=== PATIENT | female | born 1990 | race African-American/Black ===

== ENCOUNTER 2022-05-11 19:08 | Emergency (ER) | payer SELFPAY ==
--- NOTE | ~2022-05-11 | CT_ITS ---
EXAMINATION: CT soft tissue neck w con DATE: 05/11/2022 21:20 INDICATION: Throat pain. TECHNIQUE: Computed tomography (CT) of the neck was performed with 75 mL Omnipaque-350 intravenous co ntrast. The dose-length product was 530.00 mGy-cm. COMPARISON: None FINDINGS: The thyroid gland is unremarkable. The submandibular and parotid glands are symmetric. Bilateral upper cervical chain lymphadenopathy. Enlarged bilateral palatine in tonsils, adenoids, and uvula. No tonsillar abscess. There are no masses identified. Soft tissue density in the upper mediastinum, likely representing residual thymic tissue. The airway is unremarkable. Mild parapharyngeal edema . Preglottic fat planes are preserved. Normal-appearing neck vessels. The orbits are unremarkable. Mucosal thickening in the right frontal ethmoid and bilateral maxillary sinuses with an air-fluid level in the right maxillary sinus. The remaining aerated spaces are clear. Visualized lung parenchy ma is clear. No significant degenerative changes. IMPRESSION: 1. Tonsillar and adenoid enlargement with pharyngeal mucosal edema. 2. Upper anterior cervical chain lymphadenopathy. 3. CT findings suggestive of acute right maxillary sinusitis. Reviewed, dictated and finalized at location K. CARRIER
[2022-05-11 19:28] VITALS: BP 138/81; PULSE 111; RESP 14; TEMP 36.2; O2SAT 100
--- NOTE | 2022-05-11 19:50 | ED.GENADULT ---
HPI - General Adult General Chief complaint: Upper Respiratory Infection Stated complaint: throat pain Time Seen by Provider: 05/11/22 19:36 Source: RN notes reviewed History of Present Illness HPI narrative: Patient presents emergency department from home for sore throat. Patient states symptoms began 3 days ago. States that she has been having increasingly worsening sore throat to the point where it is difficult for her to swallow states that the pain is worse on the right with pain rating to the right ear. She states that she has had no measured fevers but has been feeling hot and cold she does note mild rhinorrhea as well. She denies any coughing or shortness of breath denies any chest pain abdominal pain nausea vomiting or any other symptoms. States did not take anything at home for the symptoms Related Data Allergies Allergy/AdvReac Type Severity Reaction Status Date / Time No Known Allergies Allergy Verified 05/11/22 20:43 Review of Systems Review of Systems: Gen.: Denies fevers or chills ENT: See HPI Respiratory: Denies shortness of breath or cough CV: Denies chest pain or palpitations GI: Denies abdominal pain nausea, emesis Musculoskeletal denies neck or joint pain Neuro: Denies headache Skin: Denies rash Except as documented, all other systems reviewed and negative PMFSH Past Medical History Medical History (Updated 05/11/22 @ 23:30 by Linus Dow DO) Patient denies significant medical history Social History Social History (Updated 05/11/22 @ 19:51 by Linus Dow DO) Smoking status: Never smoker Exam Narrative: APPEARANCE: No acute distress, nontoxic, resting in bed EYES: EOMI, PERRL HEENT: Normocephalic, atraumatic, TMs clear bilaterally, nares patent oral mucosa moist erythema of the posterior pharynx with enlargement of the right tonsil with protrusion and uvula shifted to the left with mild swelling of the uvula left tonsil normal in appearance no exudate airway patent tolerating own secretions mildly muffled voice RESPIRATORY: No respiratory distress Clear to auscultation bilaterally with no rhonchi wheezing or rales. CARDIOVASCULAR: Regular rate and rhythm without murmurs rubs or gallops. ABDOMINAL: Soft, nontender, nondistended, no rebound or guarding MUSCULOSKELETAl: Moves all extremities. No clubbing, cyanosis or edema. NEURO: Awake and alert. Following commands, speech normal, no focal deficits SKIN:: Warm, dry. No rashes lesions or abrasions PSYCHIATRIC: Normal affect/mood, Course Course Emergency Course: Discussed with patient results of workup and diagnosis. Discussed need for follow-up with primary care, proper use of medication, and reasons to return to the emergency department. Patient understands and agrees to current treatment plan Vital Signs Vital signs: Vital Signs Temperature 97.2 F L 05/11/22 19:28 Pulse Rate 111 H 05/11/22 19:28 Respiratory Rate 14 05/11/22 19:28 Blood Pressure 138/81 05/11/22 19:28 Pulse Oximetry 100 05/11/22 19:28 Oxygen Delivery Room Air 05/11/22 19:28 Temperature 97.2 F L 05/11/22 19:28 Pulse Rate 111 H 05/11/22 19:28 Respiratory Rate 14 05/11/22 19:28 Blood Pressure 138/81 05/11/22 19:28 Pulse Oximetry 100 05/11/22 19:28 Oxygen Delivery Room Air 05/11/22 19:28 Medical Decision Making [facility] Narrative Medical decision making narrative: Patient presents for sore throat for 3 days does have some tonsillar protrusion and swelling fluids Decadron antibiotics were given patient is strep positive CT scan was performed that does not show any acute abscess will discharge to follow-up as an Vital Signs Vital Signs: Vital Signs Temperature 97.2 F L 05/11/22 19:28 Pulse Rate 111 H 05/11/22 19:28 Respiratory Rate 14 05/11/22 19:28 Blood Pressure 138/81 05/11/22 19:28 Pulse Oximetry 100 05/11/22 19:28 Oxygen Delivery Room Air 05/11/22 19:28 Temperature 97.2 F L 05/11/22 19:28
[2022-05-11 20:05] LABS: Strep Group A RT-PCR DETECTED (Negative)
[2022-05-11] MEDS: Please add drug allergy info to patient profile. 1 EACH XX (20:41)
[2022-05-11] MEDS: KETOROLAC 30 MG/ML VIAL (*BKC) IV PUSH (20:42)
[2022-05-11] MEDS: SODIUM CHLORIDE 0.9% IV 1,000 ML 999 ML IV CONT (20:42)
[2022-05-11 20:52] LABS: Basophils Absolute Auto 0.1 K/mm3 (0.0-0.1); Basophils Percent Auto 0.6 % (0.2-1.2); Eosinophils Absolute Auto 0.5 K/mm3 (0-0.3); Eosinophils Percent Auto 4.2 % (0-4.4); Hematocrit 41.8 % (37.0-47.0); Hemoglobin 13.9 g/dL (12.0-15.0); Immature Granulocyte Absolute 0.05 K/mm3 (0.00-0.031); Immature Granulocyte Percent A 0.4 % (0-0.5); Lymphocytes Percent Auto 21.5 % (18.3-44.2); Mean Corpuscular HGB Conc 33.3 g/dl (32-36); Mean Corpuscular Hemoglobin 29.9 pg (26-34); Mean Corpuscular Volume 89.9 fl (80-100); Mean Platelet Volume 10.5 fl (7.4-10.4); Monocytes Absolute Auto 1.1 K/mm3 (0.1-0.6); Monocytes Percent Auto 9.7 % (2.6-8.5); Neutrophils Absolute Auto 7.1 K/mm3 (1.3-6.7); Neutrophils Percent Auto 63.6 % (45.5-73.1); Platelet Count Result 273 k/mm3 (150-375); Red Blood Count 4.65 M/mm3 (4.2-5.4); Red Cell Distribution Width 12.8 % (11.5-14.5); White Blood Count 11.2 K/mm3 (4.5-10.0)
[2022-05-11 21:01] LABS: Alanine Aminotransferase 31 U/L (6-35); Albumin Level 4.6 g/dL (3.5-5.1); Alkaline Phosphatase 58 U/L (38-126); Anion Gap 10 mmol/L (8-16); Aspartate Amino Transferase 27 U/L (14-36); Bilirubin,Total 0.5 mg/dL (0.2-1.3); Blood Urea Nitrogen 11 mg/dL (7-17); Calcium 9.2 mg/dL (8.4-10.2); Carbon Dioxide 27 mmol/L (22-30); Chloride 102 mmol/L (98-107); Estimated CRCL calculation 118 ml/min; Estimated Glomerular Filt Rate > 60; Glucose 103 mg/dL (65-110); Potassium 3.6 mmol/L (3.4-5.0); Sodium 139 mmol/L (137-145)
[2022-05-11] MEDS: AMPICILLIN SULB 3 GM/NS 100 ML 3 GM/100 ML VIAL IVPB (23:05)
[2022-05-11 23:32] VITALS: BP 119/80; PULSE 101; RESP 18; O2SAT 100
== END 2022-05-11 23:46 | disposition home or self-care (01) ==
PROVIDERS: Emergency Provider Emergency Medicine
DX: J02.0 Streptococcal pharyngitis (principal)
CPT/HCPCS: 36415; 70491; 80053; 81025; 85025; 87651; 96361; 96365; 96375; 99284; J0295; J1100; J1885; J7030; Q9967

== ENCOUNTER 2023-07-14 11:13 | Outpatient (CLI) | payer OTHER, SELFPAY ==
--- NOTE | ~2023-07-14 | XR_ITS ---
EXAMINATION: XR hysterosalpingogram DATE: 07/14/2023 12:50 INDICATION: Infertility. TECHNIQUE: Fluoroscopy was performed by the radiologist during contrast infusion into the endometrial cavity of the uterus by the primary physician. Fluoroscopy exposure time was 0.6 minutes. The total number of images was 8. FINDINGS: There are adhesions in the uterine cavity. The fallopian tubes are normal in caliber. There is normal free intraperitoneal spillage of contrast from the right fallopian tube. There is equivoca l spillage of contrast from the left fallopian tube. IMPRESSION: 1. Intrauterine adhesions. 2. Normal right fallopian tube. 3. Equivocal spillage of contrast from left fallopian tube. Reviewed, dictated and finalized at location A.
[2023-07-14 12:19] LABS: Beta HCG Quantitative < 2.39 mIU/ML
--- NOTE | 2023-07-14 12:48 | W.PM.PROC2 ---
Procedure Note - Detailed Date of Procedure 07/14/23 Pre-op Diagnosis Infertility Post-op Diagnosis Same Procedure Performed Hysterosalpingogram Surgeon Nitin Dean MD Anesthesia None Indications unexplained infertility Findings normal hysterosalpingogram Description of Procedure the patient was placed on the fluoroscopy table. A speculum was placed in the vagina. Cervix was grasped with a tenaculum. The catheter was placed the uterine cavity and the bulb was inflated. The speculum was removed with the angiocath still placed in the intrauterine cavity. Dye was then removed. The catheter. Fluoroscopic images obtained this process. Patient experienced some moderate to severe discomfort. The balloon of the catheter was deflated and the catheter was removed while the images were being obtained. The procedure was terminated. Patient tolerated the procedure well. There were no complications. Estimated Blood Loss 0 Complications No immediate complications Condition Stable Disposition Other
== END 2023-07-14 11:14 | disposition home or self-care (01) ==
PROVIDERS: PCP Nurse Practitioner Family; Visit Provider Obstetrics & Gynecology
DX: Z13.9 Encounter for screening, unspecified (principal); N97.9 Female infertility, unspecified
CPT/HCPCS: 36415; 58340; 74740; 84702; Q9966

== ENCOUNTER → 2023-11-06 15:40 | Outpatient (CLI) | payer BC, SELFPAY ==
--- NOTE | ~2023-11-06 | XR_ITS ---
EXAM: [id number]_[id number] DATE: 11/06/2023 15:57 HISTORY: M25.561 - Pain in right knee, GENERALIZED NO INJURY . COMPARISON: None available. FINDINGS: Decreased mineralization. No fracture or dislocation. No lytic or blastic lesion. Moderate medial joint space narrowing. Mild tricompartmental osteophytosis. No erosion or periosteal change. Soft tissues within normal limits. IMPRESSION: Osteopenia. Tricompartmental right knee osteoarthritis, moderate in the medial compartmen t. Reviewed, dictated and finalized at location K. IMPRESSION: Osteopenia. Tricompartmental right knee osteoarthritis, moderate in the medial compartment.
== END ==
PROVIDERS: PCP Nurse Practitioner Family; Visit Provider Nurse Practitioner Family
DX: M85.861 Other specified disorders of bone density and structure, right lower leg (principal); M17.11 Unilateral primary osteoarthritis, right knee
CPT/HCPCS: 73560

== ENCOUNTER 2024-08-10 11:46 | Emergency (ER) | payer BC, SELFPAY ==
[2024-08-10] VITALS (14 sets, daily range): BP systolic 114–131; BP diastolic 69–95; PULSE 104–125; RESP 16–25; TEMP 36.6; O2SAT 98–100
--- NOTE | ~2024-08-10 | XR_ITS ---
EXAMINATION: XR chest 2V DATE: 08/10/2024 13:18 INDICATION: Tachycardia TECHNIQUE: PA and lateral views of the chest were obtained. COMPARISON: None FINDINGS: The lungs are clear with no focal airspace opacities, pulmonary edema, pleural effusion or pneumothor ax. The cardiomediastinal silhouette is normal. Visualized bones and soft tissues are unremarkable. IMPRESSION: 1. Normal chest radiograph. Reviewed, dictated and finalized at location A. IMPRESSION: 1. Normal chest radiograph.
--- NOTE | ~2024-08-10 | CT_ITS ---
EXAMINATION: CT brain wo con DATE: 08/10/2024 13:23 INDICATION: Headache TECHNIQUE: Computed tomography (CT) of the head was performed without intravenous contrast. Sagittal and coronal reconstructions were performed. The mA was adjusted according to patient size. Iterative reconstruction technique was employed. The dose-length product was 605.33 mGy-cm. COMPARISON: None FINDINGS: No acute intracranial hemorrhage, acute infarction or abnormal extra axial fluid collection. Ventricl es are normal and symmetric. No mass/mass effect. There is mucosal thickening and scattered mucous in the bilateral frontal, ethmoid and maxillary sinuses. The orbits and mastoid air cells are normal. IMPRESSION: 1. Normal brain. 2. Sinus disease. Reviewed, dictated and finalized at location A.
--- NOTE | 2024-08-10 11:55 | ECG_ITS ---
Test Date: 2024-08-10 12:17:11 Measurements Intervals [place] Rate: 113 P: 49 AR: 149 QRS: 22 QRSD: 87 T: 5 QT: 297 QTc: 409 Interpretive Statements SINUS TACHYCARDIA VOLTAGE CRITERIA FOR LVH [MEETS CRITERIA IN ONE OF: R(aVL), S(V1), R(V5), R(V5/V6)+S(V1)] NONSPECIFIC T-WAVE ABNORMALITY No previous ECG available for comparison Electronically Signed On 08-10-2024 17:17:43 CDT by Dennis Mario M.D.
--- NOTE | 2024-08-10 12:19 | ED_ITS ---
HPI - Arrhythmia/Palpitations General Chief Complaint: Arrhythmia/Palpitations Stated Complaint: fast hr Time Seen by Provider: 08/10/24 12:01 Source: patient Mode of arrival: ambulatory Limitations: no limitations History of Present Illness HPI narrative: 34 years old female came to the ED by private car complaining of headache started 3 days ago, intermittent mainly in the morning and at night, no headache in between. Patient was seen by a nurse practitioner at that time and was told that her heart rate is fast at that time. Patient did not feel it or know anything about it. Patient was discharged on naproxen with significant improvement. Patient will be seen by program production specialist in 3 weeks, Patient concern about the fast heartbeat, currently she denies any fever, chills, nausea, vomiting, diarrhea, constipation, chest pain, shortness of breath or headache. report a lot of stress lately. Related Data Allergies Allergy/AdvReac Type Severity Reaction Status Date / Time No Known Allergies Allergy Verified 08/10/24 11:48 Review of Systems 2 Review of Systems: All systems reviewed & are unremarkable except as noted in HPI and below PMFSH Past Medical History Medical History Patient denies significant medical history Family History Family History Father Diabetes mellitus Hypertension Mother Diabetes mellitus Social History Social History Smoking status: Never smoker Substance use: never Substance use type: does not use Do You Feel Safe in your Home?: Yes Lack of Transportation: No Lack of Food: Never True Current Housing: I Have Housing Concerned About Future Housing: No Difficulty Paying Gas/Electric Bills: No Difficulty Paying for Meds: No Currently Unemployed: No Education: Bachelor's Degree Difficulty w/ Childcare or Family Care: No Exam 2 Narrative: General appearance: Well-developed, well-nourished Skin: Normal color Head: Normocephalic, nontraumatic Eyes: Clear conjunctiva ENT: Oropharynx normal, ears normal, nose normal Neck: Supple, nontender Chest and respiratory: Airway patent, no respiratory distress, no accessory muscle use Heart: Tachycardia Abdomen: Soft, nontender, no organomegaly, quiet bowel sounds Vascular: Normal peripheral pulses, normal capillary refill. Musculoskeletal: Normal range of motion, nontender back Neurologic: Alert and oriented ?3, [employer] is normal as tested, no gross motor deficit Course Vital Signs Vital signs: Vital Signs Temperature 36.6 C 08/10/24 11:53 Pulse Rate 125 H 08/10/24 11:53 Respiratory Rate 16 08/10/24 11:53 Blood Pressure 131/95 H 08/10/24 11:53 Pulse Oximetry 100 08/10/24 11:53 Oxygen Delivery Room Air 08/10/24 11:53 Temperature 36.6 C 08/10/24 11:53 Pulse Rate 125 H 08/10/24 11:53 Respiratory Rate 16 08/10/24 11:53 Blood Pressure 131/95 H 08/10/24 11:53 Pulse Oximetry 100 08/10/24 11:53 Oxygen Delivery Room Air 08/10/24 11:53 MDM - Arrhythmia/Palpitations MDM Narrative Medical decision making narrative: Patient came to the ED with palpitation scheduled to see a program production specialist in 3 weeks. Vital signs showing heart rate of 125 otherwise within normal limit Physical examination is unremarkable except for tachycardia Differential diagnosis include anxiety, depression, electrolyte imbalance, dehydration, hyperthyroidism Blood workup today includes CBC, CMP, TSH, troponin showed TSH less than 0.015 indicating hyperthyroidism. Chest x-ray showed no acute abnormality CT head without contrast showed no significant abnormality EKG showed sinus tachycardia at 113 beats per minute Diagnosis: Sinus tachycardia, hyperthyroidism Patient was advised to follow-up with his family physician as soon as possible for further management of the hyperthyroidism. The pt was discharged to home.the pt,s condition upon discharge was fair,education was provided to the pt in reference to the final impression,discharge study results,treatment,prognosis and need for follow up . Differential Diagnosis Differential diagnosis: Likely other (As above) Medical Records Attestation: I reviewed the patient's medical records. Lab Data Attestation: I reviewed the patient's lab results. 08/10/24 12:39 08/10/24 12:39 Labs: Lab Results 08/10/24 08/10/24 Range/Units 12:39 12:47 WBC 5.4 (4.5-10.0) K/mm3 RBC 4.66 (4.2-5.4) M/mm3 Hgb 13.6 (12.0-15.0) g/dL Hct 41.3 (37.0-47.0) % MCV 88.6 (80-100) fl MCH 29.2 (26-34) pg MCHC 32.9 (32-36) g/dl RDW 11.9 (11.5-14.5) % Plt Count 188 (150-375) k/mm3 MPV 11.4 H (7.4-10.4) fl Immature Gran % (Auto) 0.2 (0-0.5) % Neut % (Auto) 48.9 (45.5-73.1) % Lymph % (Auto) 30.9 (18.3-44.2) % [place] % (Auto) 17.6 H (2.6-8.5) % Eos % (Auto) 2.0 (0-4.4) % Baso % (Auto) 0.4 (0.2-1.2) % Lymph # (Auto) 1.67 (0.9-3.2) K/mm3 [place] # (Auto) 1.0 H (0.1-0.6) K/mm3 Eos # (Auto) 0.1 (0-0.3) K/mm3 Baso # (Auto) 0.0 (0.0-0.1) K/mm3 Abs Immat Gran (auto) 0.01 (0.00-0.031) K/mm3 Absolute Neuts (auto) 2.7 (1.3-6.7) K/mm3 Absolute Nucleated RBC 0.000 (0.0-0.012) K/mm3 Nucleated RBC % 0.0 (0.0-0.2) % PT 14.9 H (11.1-14.7) Seconds INR 1.1 APTT 32.0 (22.3-36.8) Seconds Sodium 137 (137-145) mmol/L Potassium 3.9 (3.4-5.0) mmol/L Chloride 101 (98-107) mmol/L Carbon Dioxide 31 H (22-30) mmol/L Anion Gap 5 (4-12) mmol/L BUN 16 (7-17) mg/dL Creatinine 0.56 L (0.7-1.0) mg/dL Estim Creat Clear Calc 124 ml/min Estimated GFR > 60 (59 - ) Glucose 129 H (65-110) mg/dL Calcium 9.8 (8.4-10.2) mg/dL Total Bilirubin 0.6 (0.2-1.3) mg/dL AST 56 H (14-36) U/L ALT 82 H (6-35) U/L Alkaline Phosphatase 43 (38-126) U/L Troponin I < 0.012 (0.000-0.034) ng/mL Total Protein 7.0 (6.3-8.2) g/dL Albumin 4.1 (3.5-5.1) g/dL Lipase 118 (23-300) U/L TSH < 0.015 L (0.465-4.680) uIU/mL Urine Color Yellow (Yellow) Urine Appearance Clear (Clear) Urine pH 7.0 (5.0-9.0) Ur Specific [place] 1.011 (1.001-1.035) Urine Protein Negative (Negative) mg/dL Urine Glucose (UA) Negative (Negative) mg/dL Urine Ketones Trace H (Negative) mg/dL Ur Blood (Man) Negative (Negative) Urine Nitrate Negative (Negative) Urine Bilirubin Negative (Negative) Urine Urobilinogen 0.2 (<2.0) mg/dL Leukocyte Esterase Rfl Negative (Negative) KESHAWN/UL Imaging Data Radiologist's impression: Impressions Chest X-Ray 08/10/24 13:21 IMPRESSION: 1. Normal chest radiograph. ECG Data EKG #1: Attestation: I personally reviewed and interpreted this ECG as follows: ECG completion date: 08/10/24 Interpretation: Sinus tachycardia at 113 beats per minute, nonspecific T-wave abnormality, no previous EKG available for comparison Critical Care Time Critical Care Time Critical Care Time: No Discharge Plan Discharge Clinical Impression: Hyperthyroidism, Sinus tachycardia, Palpitation, Anxiety Patient Disposition: Home Condition: Stable Instructions: Heart Palpitations (DC), Hyperthyroidism (ED), Anxiety (ED) Additional Instructions: Return if symptoms are worsening , call your family physician as soon as possible for appointment, take Tylenol as as needed for aches and pain, continue home medications. Patient Language: Malagasy Prescriptions: No Action naproxen 500 mg tablet 500 mg PO BID PRN (Reason: pain) Qty: 30 0RF Follow-up/Referrals: Karlie Gardner, ALISTAIR [Primary Care Provider] -
[2024-08-10] MEDS: ASPIRIN 81 MG CHEWABLE TABLET 324 MG PO (12:37)
[2024-08-10 12:52] LABS: Basophils Percent Auto 0.4 % (0.2-1.2); Eosinophils Absolute Auto 0.1 K/mm3 (0-0.3); Hematocrit 41.3 % (37.0-47.0); Hemoglobin 13.6 g/dL (12.0-15.0); Immature Granulocyte Absolute 0.01 K/mm3 (0.00-0.031); Immature Granulocyte Percent A 0.2 % (0-0.5); Lymphocytes Absolute Auto 1.67 K/mm3 (0.9-3.2); Lymphocytes Percent Auto 30.9 % (18.3-44.2); Mean Corpuscular HGB Conc 32.9 g/dl (32-36); Mean Corpuscular Hemoglobin 29.2 pg (26-34); Mean Corpuscular Volume 88.6 fl (80-100); Mean Platelet Volume 11.4 fl (7.4-10.4); Monocytes Percent Auto 17.6 % (2.6-8.5); Neutrophils Absolute Auto 2.7 K/mm3 (1.3-6.7); Neutrophils Percent Auto 48.9 % (45.5-73.1); Platelet Count Result 188 k/mm3 (150-375); Red Blood Count 4.66 M/mm3 (4.2-5.4); Red Cell Distribution Width 11.9 % (11.5-14.5); White Blood Count 5.4 K/mm3 (4.5-10.0)
[2024-08-10 12:55] LABS: Add Urine Microscopic? NO; Appearance Urine Clear (Clear); Bilirubin Urine Negative (Negative); Blood Urine Negative (Negative); Color Urine Yellow (Yellow); Glucose Urine UA Negative (Negative); Ketones Urine Trace mg/dL (Negative); Leukocyte Esterase Ur Negative LEU/UL (Negative); Nitrate Urine Negative (Negative); Protein Urine Negative (Negative); Specific Grav Ur 1.011 (1.001-1.035); Urobilinogen Urine 0.2 mg/dL (<2.0)
[2024-08-10] MEDS: LORazepam INJ (*CRX) 2 MG/ML VIAL 1 MG IV PUSH (12:59)
[2024-08-10 13:03] LABS: Alanine Aminotransferase 82 U/L (6-35); Albumin Level 4.1 g/dL (3.5-5.1); Alkaline Phosphatase 43 U/L (38-126); Anion Gap 5 mmol/L (4-12); Aspartate Amino Transferase 56 U/L (14-36); Bilirubin,Total 0.6 mg/dL (0.2-1.3); Blood Urea Nitrogen 16 mg/dL (7-17); Calcium 9.8 mg/dL (8.4-10.2); Carbon Dioxide 31 mmol/L (22-30); Chloride 101 mmol/L (98-107); Estimated CRCL calculation 124 ml/min; Estimated Glomerular Filt Rate > 60; Glucose 129 mg/dL (65-110); Lipase 118 U/L (23-300); Potassium 3.9 mmol/L (3.4-5.0); Sodium 137 mmol/L (137-145)
[2024-08-10 13:04] LABS: INR 1.1; Prothrombin Time 14.9 Seconds (11.1-14.7)
[2024-08-10 13:15] LABS: Troponin I < 0.012 ng/mL (0.000-0.034)
[2024-08-10 13:33] LABS: Thyroid Stimulating Hormone < 0.015 uIU/mL (0.465-4.680)
== END 2024-08-10 13:59 | disposition home or self-care (01) ==
PROVIDERS: Emergency Provider Emergency Medicine; PCP Nurse Practitioner Family
DX: E05.90 Thyrotoxicosis, unspecified without thyrotoxic crisis or storm (principal); R00.0 Tachycardia, unspecified; R00.2 Palpitations; F41.9 Anxiety disorder, unspecified
CPT/HCPCS: 36415; 70450; 71046; 80053; 81003; 83690; 84443; 84484; 85025; 85610; 85730; 93005; 96374; 99284; A9270; J2060

== ENCOUNTER 2024-08-15 12:40 | Outpatient (CLI) | payer BC, SELFPAY ==
--- NOTE | ~2024-08-15 | US_ITS ---
Thyroid ultrasound. Clinical History: Thyrotoxicosis Findings: Real-time sonography of the thyroid gland was performed. The right lobe measures 5.1 x 2.2 x 2.4 cm. The left lobe measures 5.5 x 2.5 x 2.0 cm. The isthmus is 6 mm in AP diameter. Thyroid parenchyma is diffusely heterogeneous with diffuse relative hypervascularity. Impression: Diffusely hypervascular heterogeneous thyroid gland suggests thyroiditis. No discrete thyroid nodule seen.. Reviewed, dictated and finalized at location . Impression: Diffusely hypervascular heterogeneous thyroid gland suggests thyroiditis. No discrete thyroid nodule seen..
== END 2024-08-15 12:41 | disposition home or self-care (01) ==
LOC: GOSHIMG 12:41
PROVIDERS: PCP Nurse Practitioner Family; Visit Provider Nurse Practitioner Family
DX: E05.90 Thyrotoxicosis, unspecified without thyrotoxic crisis or storm (principal)
CPT/HCPCS: 76536